=== PATIENT | female | born 1970 | race African-American/Black ===

== ENCOUNTER → 2016-10-20 | Outpatient (CLI) | payer OTHER ==
[~2016-10-20] VITALS: Ht 154.9 cm; Wt 97.1 kg
[~2016-10-20] MED LIST: AMLO10TA4 PO; GLIP10TA13 PO; LISI1TAB7 PO; METF-620 PO; PRAV20TA2 PO
[2016-10-20 12:35] VITALS: BP 138/78
--- NOTE | 2016-10-20 16:56 | RAD ---
Indication suspect mass 3:00 position of the right breast 3 cm from the nipple. Note is made of the outside mammogram and right breast ultrasound 09/27/2016 demonstrating a mass in the right breast. That examination demonstrated a slightly enlarged lymph node in the right axilla as well. Preliminary images were obtained and the known mass in the right breast was reproduced. Contract Admin images were saved. A slightly enlarged lymph node was also seen in the right axilla and again personal financial representative images were saved. Image guided biopsy of the breast mass and the slightly enlarged lymph node in the the right axilla was discussed with the patient. Risks of infection and bleeding were outlined. The small possibility of pneumothorax was discussed. The possibility of damage to nerves or vessels in the right axilla was also discussed. The patient understood the risks associated with the procedure and wished to proceed. The breast mass was initially approached. The area was prepped and draped in routine fashion. Local anesthesia was accomplished with 1% lidocaine. A 14-gauge coaxial biopsy system was utilized. 5 core samples were obtained. Following the biopsy a marking clip was deployed. Retrieved material was placed in formaldehyde and transferred to pathology for analysis. Separate needles and biopsy system were utilized for the biopsy of the lymph node in the right axilla. The area was again prepped and draped in the routine fashion. Local anesthesia was accomplished with 1% lidocaine. A 18-gauge coaxial biopsy system was utilized. 4 core samples were obtained. Retrieved material was placed in formaldehyde and transferred to pathology. The patient tolerated the biopsy procedures well. The biopsy sites were dressed in routine fashion. Following the biopsies the patient was transferred to a dedicated mammographic suite. Conventional mammographic images were obtained. The clip appears appropriately positioned in the right breast. The patient was discharged with appropriate instructions. IMPRESSION: Successful biopsy of suspect mass in the right breast. A marking clip was deployed at the biopsy site. Successful biopsy of slightly enlarged lymph node in the right axilla.
--- NOTE | 2016-10-23 16:57 | PATHOLOGY ---
PATHOLOGY REPORT * * * * * * * * FINAL DIAGNOSIS: A. Breast tissue, right breast mass needle biopsy: - Focal acute and chronic inflammation consistent with abscess. B. Segments of lymph node and fibroadipose tissue, right axilla nodule needle biopsy: - Sinus histocytosis of lymph node - negative for tumor. COMMENT: Sections of the right breast mass needle biopsy show foci of acute and chronic inflammation consistent with abscess. There is no evidence of malignancy. Sections of the right axilla nodule needle biopsy reveal segments of lymph node showing focal reactive sinus histocytosis. There is no evidence of malignancy. REPORT ELECTRONICALLY SIGNED BY: Thor Reis M.D. DATE/TIME: 10/23/2016 16:51 * * * * * * * * GROSS PATHOLOGY: A. Received in formalin labeled "Jed Ceballos, right breast mass biopsy," are multiple needle cores of yellow-potts fibrofatty tissue measuring 0.8 x 0.6 x 0.3 cm in aggregate dimensions. The tissue is submitted in its entirety in cassette A1. The cold ischemic time is 8 minutes. The total formalin fixation time is 8 hours and 2 minutes. B. Received in formalin labeled "right axilla," are multiple needle cores of yellow-potts fibrofatty tissue measuring 0.4 x 0.3 x 0.2 cm in aggregate dimensions. The tissue is submitted in its entirety in cassette B1. The cold ischemic time is 3 minutes. The total formalin fixation time is 8 hours and 2 minutes. (JPM; 10/20/16) INITIAL CPT CODE(S): A; 24090 B; 65853 Professional services performed by [facility] at [address] [address] Technical services performed by [facility] at [address] [place] [address], [address] [address]. SPECIMEN(S) RECEIVED: A.Right breast biopsy B.Right axilla biopsy CLINICAL HISTORY: Right breast mass, right axillary mass PATIENT: JED CEBALLOS /AGE: 1205/06/1970 (Age: 46) PATIENT #: [id number] ALT CASE #: SPECIMEN COLLECTION DATE: 10/20/2016 SPECIMEN RECEIVED DATE: 10/20/2016 [facility] - [address] [place] [address] - PHONE: [phone] * * * END OF REPORT * * *
== END | disposition home or self-care (01) ==
LOC: US 12:05
PROVIDERS: ATTEND Surgery
DX: R92.8 Other abnormal and inconclusive findings on diagnostic imaging of breast (principal); R59.0 Localized enlarged lymph nodes
CPT/HCPCS: 76942; C1713; G0206; 77065

== ENCOUNTER → 2017-11-03 | Outpatient (CLI) | payer OTHER | END | disposition home or self-care (01) | LOC: MAMMO 09:01 | DX: Z12.31 Encounter for screening mammogram for malignant neoplasm of breast (principal) | CPT/HCPCS: 77063; 77067 ==